=== PATIENT | female | born 1965 | race Caucasian/White ===

== ENCOUNTER 2018-07-02 14:53 | Emergency (ER) | payer BC ==
[2018-07-02] MEDS ORDERED: TRIA10.8 (15:08)
[2018-07-02] MEDS ORDERED: BUDE10.2 INH (15:08)
[2018-07-02] MEDS ORDERED: MONT10TA PO (15:08)
[2018-07-02 15:30] VITALS: BP 133/85
[2018-07-02] MEDS ORDERED: CEPHALEXIN MONO 500 MG CAP PO ONE (16:05)
[2018-07-02] MEDS ORDERED: CEPH500T7 PO (16:08)
--- NOTE | 2018-07-02 16:09 | ER Report ---
History and Physical Time Seen By MD: 15:00 Hx. of Stated Complaint: I THINK I HAVE A UTI HPI/ROS 53-year-old otherwise healthy female presents to the emergency department with urinary urgency, burning, frequency, and hematuria. She states that she had sexual intercourse approximately 2 days ago. She did urinate after intercourse weeks usually does. Her urinary symptoms started approximate 12 hours later, and have worsened over the past 36 hours. She denies any back pain, no fever chills, no nausea vomiting or diarrhea. Other than the suprapubic discomfort, she denies abdominal pain. Remainder of the 14 system rev: Yes Allergies: Coded Allergies: No Known Allergies (Verified Allergy, Unknown, 07/02/18) Home Meds Active Scripts Cephalexin 500 Mg Tab (KEFLEX 500 MG TAB) 500 Mg Tablet, 500 MG PO BID for 7 Days, #14 TAB Prov:VI CAMP MD 07/02/18 Reported Medications Triamcinolone Acetonide (Nasacort) 10.8 Ml [place], QDAY 07/02/18 Montelukast Sodium (SINGULAIR) 10 Mg Tablet, 1 TAB PO QDAY, TAB 07/02/18 Budesonide/Formoterol Fumarate (SYMBICORT 160-4.5 MCG INHALER) 10.2 Gm Inh, 10.2 GM INH BID, INH 07/02/18 Reviewed Nurses Notes: Yes Old Medical Records Reviewed: Yes Hx Smoking: No Smoking Status: Never Smoker Hx Substance Use Disorder: No Hx Alcohol Use: No Constitutional Vital Sign - Last 24 Hours 07/02/18 07/02/18 07/02/18 07/02/18 14:58 14:59 15:00 15:08 Temp 98.4 Pulse 99 91 Resp 12 B/P (MAP) 154/74 (100) 154/74 144/94 (111) Pulse Ox 98 97 O2 Delivery Room Air Room Air 07/02/18 07/02/18 07/02/18 07/02/18 15:23 15:30 15:38 15:53 Pulse 80 81 82 B/P (MAP) 133/85 (101) Pulse Ox 94 94 94 O2 Delivery Room Air Room Air Room Air Physical Exam General Appearance: The patient is alert, has no immediate need for airway protection and no current signs of toxicity. Respiratory: Chest is non tender, lungs are clear to auscultation. Cardiac: regular rate and rhythm Gastrointestinal: Abdomen is soft and non tender, no masses, bowel sounds normal. Extremities have full range of motion and are non tender. Skin: No rashes or lesions. DIFFERENTIAL DIAGNOSIS: After history and physical exam differential diagnosis was considered for uti, pyelonephritis, kidney stone, intra-abdominal infection Medical Decision Making Data Points Laboratory Hematology Test 07/02/18 15:00 Urine Color Yellow Urine Clarity Cloudy Urine pH 8.0 pH (4.8-9.5) Urine Specific [place] 1.004 Urine Protein 30 mg/dL (NEGATIVE) Urine Glucose (UA) Negative mg/dL (NEGATIVE) Urine Ketones Negative mg/dL (NEGATIVE) Urine Blood Large (NEGATIVE) Urine Nitrite Negative (NEGATIVE) Urine Bilirubin Negative (NEGATIVE) Urine Urobilinogen Negative mg/dL (0.2-1.9) Urine Leukocyte Esterase Large (NEGATIVE) Urine RBC 10 /HPF (0-2/HPF) Urine WBC 502 /HPF (0-5/HPF) Urine WBC Clumps Many /HPF Urine Squamous Epithelial Cells Many /LPF (</=FEW) Urine Transitional Epithelial Cells Many /LPF (NONE-FEW) Urine Bacteria Few /HPF (NONE-FEW) Urine Mucus None /HPF (NONE-FEW) Chemistry Test 07/02/18 15:00 Urine Color Yellow Urine Clarity Cloudy Urine pH 8.0 pH (4.8-9.5) Urine Specific [place] 1.004 Urine Protein 30 mg/dL (NEGATIVE) Urine Glucose (UA) Negative mg/dL (NEGATIVE) Urine Ketones Negative mg/dL (NEGATIVE) Urine Blood Large (NEGATIVE) Urine Nitrite Negative (NEGATIVE) Urine Bilirubin Negative (NEGATIVE) Urine Urobilinogen Negative mg/dL (0.2-1.9) Urine Leukocyte Esterase Large (NEGATIVE) Urine RBC 10 /HPF (0-2/HPF) Urine WBC 502 /HPF (0-5/HPF) Urine WBC Clumps Many /HPF Urine Squamous Epithelial Cells Many /LPF (</=FEW) Urine Transitional Epithelial Cells Many /LPF (NONE-FEW) Urine Bacteria Few /HPF (NONE-FEW) Urine Mucus None /HPF (NONE-FEW) Urinalysis Test 07/02/18 15:00 Urine Color Yellow Urine Clarity Cloudy Urine pH 8.0 pH (4.8-9.5) Urine Specific [place] 1.004 Urine Protein 30 mg/dL (NEGATIVE) Urine Glucose (UA) Negative mg/dL (NEGATIVE) Urine Ketones Negative mg/dL (NEGATIVE) Urine Blood Large (NEGATIVE) Urine Nitrite Negative (NEGATIVE) Urine Bilirubin Negative (NEGATIVE) Urine Urobilinogen Negative mg/dL (0.2-1.9) Urine Leukocyte Esterase Large (NEGATIVE) Urine RBC 10 /HPF (0-2/HPF) Urine WBC 502 /HPF (0-5/HPF) Urine WBC Clumps Many /HPF Urine Squamous Epithelial Cells Many /LPF (</=FEW) Urine Transitional Epithelial Cells Many /LPF (NONE-FEW) Urine Bacteria Few /HPF (NONE-FEW) Urine Mucus None /HPF (NONE-FEW) ED Course/Re-evaluation ED Course Otherwise healthy 53-year-old female with a history likely consistent with a uncomplicated cystitis. The urinalysis was not a clean catch and appears equivocal, however she has a history that is consistent with cystitis. She otherwise has no abdominal pain, no flank pain, and no fever or chills. I will start her on Keflex twice a day for 7 days. She will follow-up with her primary care physician. Decision to Disposition Date: Jul 02, 2018 Decision to Disposition Time: 16:06 Depart Departure Latest Vital Signs Vital Signs Date Time Temp Pulse Resp B/P (MAP) Pulse Ox O2 Delivery O2 Flow Rate FiO2 07/02/18 15:53 82 94 Room Air 07/02/18 15:30 133/85 (101) 07/02/18 14:59 98.4 12 Impression: Primary Impression: UTI (urinary tract infection) Condition: Improved Disposition: HOME OR SELF-CARE New Scripts Cephalexin 500 Mg Tab (KEFLEX 500 MG TAB) 500 Mg Tablet 500 MG PO BID for 7 Days, #14 TAB Prov: VI CAMP MD 07/02/18 Patient Instructions: Urinary Tract Infection in Women (ED) Problem Qualifiers Primary Impression: UTI (urinary tract infection) Urinary tract infection type: acute cystitis Hematuria presence: with hematuria Qualified Codes: N30.01 - Acute cystitis with hematuria VI CAMP MD Jul 02, 2018 16:09
== END 2018-07-02 16:17 | disposition home or self-care (01) ==
LOC: ER 15:12
DX: N39.0 Urinary tract infection, site not specified (principal)
CPT/HCPCS: 81001; 99283